=== PATIENT | male | born 1935 | race Caucasian/White ===

== ENCOUNTER → 2023-07-17 13:20 | Outpatient (REF) | payer MEDICARE, BC, SELFPAY | LOC: RAD 13:20 | PROVIDERS: ATTENDING PHYSICIAN Internal Medicine | DX: Z91.81 History of falling (principal); M79.602 Pain in left arm | CPT/HCPCS: 73030; 73080 ==

== ENCOUNTER → 2024-11-20 15:04 | Outpatient (REF) | payer MEDICARE, BC, SELFPAY | LOC: HWRCS 15:04 | PROVIDERS: ATTENDING PHYSICIAN Internal Medicine Cardiovascular Disease; FAMILY PHYSICIAN Internal Medicine | DX: R07.89 Other chest pain (principal) | CPT/HCPCS: 93306 ==

== ENCOUNTER 2024-12-02 12:32 | Inpatient (IN) | payer MEDICARE, BC, SELFPAY ==
--- NOTE | 2024-11-18 09:55 | CM ---
Demographics: confirmed
Living situation: Lives with who has dementia
Support Person Post Operatively: Son Javi, plans to stay with patient and patient's for about a week.
History of
VN: yes, not on service
SNF: no
Outpatient: 'Some place in [place]'
Has patient purchased required equipment: yes
PCP: active
Pharmacy: [facility]
Post Operative Discharge Plan: As per Dr. Nguyen, plan for VN for two weeks. Patient expressed preference for [facility]. CONRADO updated [facility] Admission RN.
CM spoke with son to confirm that he and his will be staying with patient post operatively.
--- NOTE | 2024-11-18 14:32 | VNURNOTE ---
Chart reviewed. Pt will be [facility] then receive [facility] x 2 weeks. Rec'ed message to speak to son. Called son Javi, no answer, left message. Referral for [facility] entered and accepted in [facility].
[2024-11-26 14:05] VITALS: BMI 32.4
[2024-11-26 14:40] LABS: Hematocrit 37.8 % (39.0-52.0); Hemoglobin 12.7 g/dL (13.0-18.0); Mean Corp Hgb Conc. 33.6 g/dL (33.0-37.0); Mean Corpuscular Volume 93.3 fL (80.0-94.0); Platelet Count 222 10^3/uL (130-400); Red Cell Dist. Width 13.2 % (11.5-14.5)
[2024-11-26 14:43] LABS: ALT (SGPT) 21 U/L (0-50); AST (SGOT) 25 U/L (17-59); Albumin 4.4 g/dl (3.5-5.0); Alkaline Phosphatase 71 U/L (38-126); Blood Urea Nitrogen 27 mg/dl (9-20); Calcium 9.0 mg/dl (8.4-10.2); Carbon Dioxide 26 mmol/L (22-30); Chloride 105 mmol/L (98-107); Estimated Creatinine Clearance 49 ml/min; Glucose 162 mg/dl (70-99); Potassium 4.3 mmol/L (3.5-5.1); Sodium 139 mmol/L (135-145); Total Protein 7.2 g/dl (6.3-8.2); eGFR 53.17
[2024-11-27 09:25] LABS: Glycohemoglobin (HgbA1c) 6.7 % (4.0-5.6)
[2024-11-27 16:23] VITALS: BMI 32.4
[2024-12-02] VITALS (13 sets, daily range): BP systolic 145–219; BP diastolic 76–109; BMI 32.4; BMI 30.7
[2024-12-02] MEDS: TYLENOL 650 MG PO ×2 (12:37→20:32)
[2024-12-02] MEDS: CELEBREX 200 MG PO (12:37)
[2024-12-02] MEDS: NORMOSOL-R/PLASMALYTE-A 1000 IV ×2 (12:39→21:39)
[2024-12-02 12:40] LABS: Glucose - Point of Care 118 mg/dl (70-99)
--- NOTE | 2024-12-02 14:21 | W.PN.ORTHO ---
Today's Communication / Plan
-
DISCHARGE DESTINATION: Home with PT, OT and VN. Patient has been
advised as well as son that he is to have 24/ supervision for
minimum of one week postoperatively. He is currently primary
caregiver for his and also has underlying ambulatory
dysfunction with history of fall. In addition, with cognitive issues.
Son was made aware and is instructed to present to hospital by
8 a.m. day of discharge for additional instruction.
Assessment
.
Dressing:
Clean, dry and intact.
Assessment:
ZSO-US-duen-Eliquis at modified dose
Non insulin-dependent diabetes-resume oral hypoglycemics
-add Novolog coverage-Cefadroxil ppx OP Rx
BPH with urinary retention/LUTS
--0.8 mg Flomax immediately following OR
Balance and gait disturbance
-fall precautions
__
Plan
.
Surgery / Date: R TKA Revision Dr Nguyen 12/02/24
DVT Prophylaxis: Other (Eliquis)
Activity:
Out of bed.
PT/OT
Discharge Plan: Home w/ VN
Subjective
.
.:
Patient resting comfortably.
Vital Signs and Labs
.
Vital Signs and Labs:
Lab Results
11/26/24 13:20
11/26/24 13:20
Temp Pulse Resp BP Pulse Ox
98.1 F 50 12 175/95 98
12/02/24 12:26 12/02/24 12:26 12/02/24 12:26 12/02/24 12:26 12/02/24 12:26
--- NOTE | 2024-12-02 14:42 | W.DS.TRANS ---
DC Summary - Leadership Program Internship
-
Discharge Instructions:
Discharge Diagnosis/Procedures R TKA Revision Dr Nguyen 12/02/24
Diet Diabetic, Carb Controlled
Activity With Walker,With assistance
Driving Restrictions No driving
Bathing Restrictions OK to Shower
Other Services VN,PT,OT
Instructions:
Stand-Alone Forms: Total Hip/Knee Replacement D/C
Changes to Home Medications: Yes
Discharge Medications:
DC Medications w/original date entered in [facility]
glimepiride 4 mg tablet 4 - 8 mg PO BID DM II 03/10/09
allopurinol 300 mg tablet 300 mg PO DAILY Gout 10/25/19
cholecalciferol (vitamin D3) 50 mcg (2,000 unit) tablet 2,000 units PO DAILY Supplement 10/25/19
pravastatin 20 mg tablet 20 mg PO QPM High cholesterol 10/25/19
tamsulosin 0.4 mg capsule 0.8 mg PO DAILY 10/05/20
amlodipine 2.5 mg tablet 2.5 mg PO DAILY 11/22/24
atenolol 50 mg tablet 50 mg PO HS 11/22/24
sodium bicarbonate 650 mg tablet 650 mg PO DAILY 11/22/24
cefadroxil 500 mg capsule 500 mg PO BID infection prevention #14 caps 11/26/24
famotidine 20 mg tablet 20 mg PO HS GI prophylaxis #30 tabs 11/26/24
gabapentin 300 mg capsule 300 mg PO HS sleep/pain #10 caps 11/26/24
mupirocin 2 % topical ointment 1 applic topical BID infection prevention #1 tube 11/26/24
ondansetron 4 mg disintegrating tablet 4 mg PO Q6H PRN n/v #20 tabs 11/26/24
oxycodone 5 mg tablet 5 mg PO Q6H PRN 1 tab moderate pain, 2 tabs severe pain #30 tabs 11/26/24
Saccharomyces boulardii 250 mg capsule (Florastor) 250 mg PO BID #1 cap 12/02/24
acetaminophen 325 mg tablet (Tylenol) 650 mg (2 x 325 mg) PO QID #1 tab 12/02/24
apixaban 5 mg tablet (Eliquis) 2.5 mg (1/2 x 5 mg) PO BID Blood clot prevention/afib #0 tabs 12/02/24
docusate sodium 100 mg capsule (Colace) 100 mg PO BID stool softner #1 cap 12/02/24
magnesium hydroxide 400 mg/5 mL oral suspension (Milk of Magnesia) 30 ml PO HS PRN constipation #1 mL 12/02/24
sennosides 8.6 mg tablet (Senokot) 17.2 mg (2 x 8.6 mg) PO BID laxative #2 tabs 12/02/24
Home Medication Changes
cefadroxil 500 mg capsule 500 mg PO BID infection prevention #14 caps 11/26/24
famotidine 20 mg tablet 20 mg PO HS GI prophylaxis #30 tabs 11/26/24
gabapentin 300 mg capsule 300 mg PO HS sleep/pain #10 caps 11/26/24
mupirocin 2 % topical ointment 1 applic topical BID infection prevention #1 tube 11/26/24
ondansetron 4 mg disintegrating tablet 4 mg PO Q6H PRN n/v #20 tabs 11/26/24
oxycodone 5 mg tablet 5 mg PO Q6H PRN 1 tab moderate pain, 2 tabs severe pain #30 tabs 11/26/24
Saccharomyces boulardii 250 mg capsule (Florastor) 250 mg PO BID #1 cap 12/02/24
acetaminophen 325 mg tablet (Tylenol) 650 mg (2 x 325 mg) PO QID #1 tab 12/02/24
apixaban 5 mg tablet (Eliquis) 2.5 mg (1/2 x 5 mg) PO BID Blood clot prevention/afib #0 tabs 12/02/24
docusate sodium 100 mg capsule (Colace) 100 mg PO BID stool softner #1 cap 12/02/24
magnesium hydroxide 400 mg/5 mL oral suspension (Milk of Magnesia) 30 ml PO HS PRN constipation #1 mL 12/02/24
sennosides 8.6 mg tablet (Senokot) 17.2 mg (2 x 8.6 mg) PO BID laxative #2 tabs 12/02/24
Pending Results: No
[2024-12-02 17:37] LABS: Glucose - Point of Care 114 mg/dl (70-99)
[2024-12-02] MEDS: DILAUDID 0.25 MG IV (17:37)
[2024-12-02] MEDS: ROXICODONE 5 MG PO (17:50)
[2024-12-02] MEDS: TRANDATE 5 MG IV (18:43)
[2024-12-02] MEDS: ELIQUIS 2.5 MG PO (20:31)
[2024-12-02] MEDS: SENOKOT 17.2 MG PO (20:31)
[2024-12-02] MEDS: COLACE 100 MG PO (20:31)
[2024-12-02] MEDS: PRAVACHOL 20 MG PO (20:32)
[2024-12-02] MEDS: BACTROBAN 2% OINTMENT 1 APPLIC NASAL (20:33)
[2024-12-02] MEDS: DILAUDID 0.5 MG IV (20:33)
[2024-12-02 21:37] LABS: Glucose - Point of Care 159 mg/dl (70-99)
[2024-12-02] MEDS: PEPCID 20 MG PO (21:39)
[2024-12-02] MEDS: TENORMIN 50 MG PO (21:39)
[2024-12-02] MEDS: ANCEF 5 IV (21:39)
[2024-12-02] MEDS: NEURONTIN 300 MG PO (21:39)
[2024-12-02] MEDS: TYLENOL PO (21:52)
[2024-12-02] MEDS: FLOMAX PO (21:53)
[2024-12-02] MEDS: NOVOLOG FLEXPEN SC (21:53)
[2024-12-02] MEDS: NOVOLOG FLEXPEN-MODERATE RESISTANCE SC (21:54)
[2024-12-02] MEDS: AMARYL PO (21:54)
[2024-12-03] VITALS (11 sets, daily range): BP systolic 75–158; BP diastolic 42–74; PULSE 50–72; O2SAT 99
[2024-12-03] MEDS: TYLENOL 650 MG PO ×6 (00:15→20:22)
--- NOTE | 2024-12-03 01:32 | PTCARENOTE ---
pt rec'vd from PACU at aprox 19:25, aaox3, NEWTOK, R knee drsg with small amount of drainage assessed with PACU nurse. Pt oriented to unit.
--- NOTE | 2024-12-03 02:30 | PTCARENOTE ---
2153 pt refused glimepiride he states he does not take it if his BS is under 200and he can not have a full meal.
[2024-12-03] MEDS: ANCEF 5 IV (06:11)
--- NOTE | 2024-12-03 06:49 | PTCARENOTE ---
pt has had 2 pause episodes less than 2sec and is mateo during night with CPAP .. I read cardiology note has the same pattern at HS .MARKETING ACCOUNT MANAGER made aware.
[2024-12-03 07:59] LABS: Glucose - Point of Care 164 mg/dl (70-99)
[2024-12-03] MEDS: AMARYL 4 MG PO ×2 (08:41→16:28)
[2024-12-03] MEDS: SODIUM BICARBONATE 650 MG PO (08:42)
[2024-12-03] MEDS: FLOMAX 0.8 MG PO (08:42)
[2024-12-03] MEDS: ZYLOPRIM 300 MG PO (08:42)
[2024-12-03] MEDS: SENOKOT 17.2 MG PO ×2 (08:42→20:22)
[2024-12-03] MEDS: NORVASC 2.5 MG PO (08:42)
[2024-12-03] MEDS: COLACE 100 MG PO ×2 (08:42→20:23)
[2024-12-03] MEDS: BACTROBAN 2% OINTMENT 1 APPLIC NASAL ×2 (08:42→20:20)
[2024-12-03] MEDS: ELIQUIS 2.5 MG PO ×2 (08:42→20:21)
[2024-12-03] MEDS: NOVOLOG FLEXPEN-MODERATE RESISTANCE 1 UNITS SC ×3 (08:43→17:28)
[2024-12-03] MEDS: NOVOLOG FLEXPEN 4 UNITS SC ×3 (08:44→17:27)
--- NOTE | 2024-12-03 08:53 | CM ---
Cm met with patient in room. Patient confirmed choice of [facility]. Patient will have son stay with patient and .
PLAN: Home with [facility], and family support.
--- NOTE | 2024-12-03 09:39 | VNURNOTE ---
Home Health Liaison met with patient at bedside to discuss [facility] nurse/therapy, visits, schedule and homebound status. Patient is agreeable and understands that visits at home will be 2-3 x per week to assess and teach medical management.
Patient is aware that [facility] will contact them for start of care in 1-2 days after discharge from .
[facility] referral accepted in [facility].
--- NOTE | 2024-12-03 10:05 | PTCARENOTE ---
This nurse responded to tele alarms alarming for afib and HR in the 40s. Upon review, concern for possible heart block. obtained 12 lead ekg and HAYLEY Chun notified.
--- NOTE | 2024-12-03 10:14 | PTCARENOTE ---
Pt continuing to alarm afib and low rate with pauses while awake. PA notified again
--- NOTE | 2024-12-03 11:20 | PTCARENOTE ---
Pt became hypotensive when working w PT. PA notified. 250ml bolus ordered and administered along with a stat dose of midodrine. Care ongoing.
--- NOTE | 2024-12-03 11:27 | W.PN.ORTHO ---
Today's Communication / Plan
-
DISCHARGE DESTINATION: Home with PT, OT and VN. Patient has been
advised as well as son that he is to have 24/7 supervision for
minimum of one week postoperatively. He is currently primary
caregiver for his and also has underlying ambulatory
dysfunction with history of fall. In addition, with cognitive issues.
Son was made aware and is instructed to present to hospital by
8 a.m. day of discharge for additional instruction.
Assessment
.
Distal Motor Intact: Yes
Dressing:
Clean, dry and intact.
Assessment:
Orthostasis POD#1-+ Midodrine and 250ml IVF bolus
-recheck BP 1 hour after 13:00 repeat dose and if no
orthostasis, may be d/c
[id number] on tele-Eliquis at modified dose
Non insulin-dependent diabetes-resume oral hypoglycemics
-add Novolog coverage-Cefadroxil ppx OP Rx
-sugars stable
BPH
--0.8 mg Flomax immediately following OR
-voiding well
Balance and gait disturbance
-fall precautions
Plan
.
Surgery / Date: R TKA Revision Dr Nguyen 12/02/24
DVT Prophylaxis: Other (Eliquis)
Activity:
Out of bed.
PT/OT
Discharge Plan: Home w/ VN
Subjective
.
.:
Patient resting comfortably.
Vital Signs and Labs
.
Vital Signs and Labs:
Lab Results
11/26/24 13:20
11/26/24 13:20
Temp Pulse Resp BP Pulse Ox
97.5 F 65 20 170/87 92
12/03/24 07:20 12/03/24 08:42 12/03/24 07:20 12/03/24 08:42 12/03/24 07:20
Non-invasive Hgb result: 14
Physical Exam
-
HEENT: No pallor, cyanosis, or jaundice. Throat clear.
NECK: Supple. No JVD.
RESPIRATORY: Lungs clear to auscultation.
CVS: S1, S2 normal. RRR.� No murmur, rub or gallop.
ABDOMEN: Soft, non-tender. No distension. BS+/normal.
EXTREMITIES: strength equal, no calf pain with palpation
CHEMICAL WORKER: AOx3. No focal deficits. staff mechanical engineer grossly intact
[2024-12-03] MEDS: NORMOSOL-R/PLASMALYTE-A 250 IV (11:51)
[2024-12-03 12:41] LABS: Glucose - Point of Care 197 mg/dl (70-99)
[2024-12-03] MEDS: NORMOSOL-R/PLASMALYTE-A 500 IV ×2 (16:37→23:11)
[2024-12-03 17:08] LABS: Glucose - Point of Care 155 mg/dl (70-99)
[2024-12-03] MEDS: PRAVACHOL 20 MG PO (17:29)
[2024-12-03] MEDS: PEPCID 20 MG PO (20:21)
[2024-12-03] MEDS: NEURONTIN 300 MG PO (20:21)
[2024-12-04] MEDS: TYLENOL PO ×2 (00:16→03:46)
[2024-12-04 01:07] LABS: Glucose - Point of Care 165 mg/dl (70-99)
--- NOTE | 2024-12-04 01:25 | PTCARENOTE ---
CERTIFIED WELLNESS PROGRAM MANAGER notified pt HR 26-50's Afib with pauses noted. pt asymptomatic, labs ordered and sent.
[2024-12-04 01:31] LABS: Hematocrit 27.8 % (39.0-52.0); Hemoglobin 9.5 g/dL (13.0-18.0); Mean Corp Hgb Conc. 34.2 g/dL (33.0-37.0); Mean Corpuscular Volume 91.4 fL (80.0-94.0); Platelet Count 175 10^3/uL (130-400); Red Cell Dist. Width 13.5 % (11.5-14.5)
[2024-12-04 02:01] LABS: Blood Urea Nitrogen 40 mg/dl (9-20); Calcium 8.0 mg/dl (8.4-10.2); Carbon Dioxide 26 mmol/L (22-30); Chloride 103 mmol/L (98-107); Estimated Creatinine Clearance 43 ml/min; Glucose 156 mg/dl (70-99); Magnesium 2.1 mg/dl (1.6-2.3); Potassium 3.9 mmol/L (3.5-5.1); Sodium 134 mmol/L (135-145); eGFR 44.78
[2024-12-04 03:00] VITALS: BP 141/65
[2024-12-04] MEDS: CALCIUM GLUCONATE 100 IV (03:37)
[2024-12-04] MEDS: NORMOSOL-R/PLASMALYTE-A 500 IV (05:35)
--- NOTE | 2024-12-04 07:27 | W.PN.UPDATE ---
Update Note
Progress Note Update
RN reporting pt HR 30-40s. Added parameters to HS atenolol dose, but decided to hold tonights dose. Despite the holding of tonights atenolol dose pt HR 30s -40s and sometimes hitting as low as 28 while sleeping. A few pauses were also captured on
tele. Per preop Cardiac clearance holtor monitor in mar 2024 showed freq bradycardia at Hs with pauses up to 5 seconds. During tonights episodes of nocturnal bradycardia pt was ASYMPTOMATIC.
LAbs work check for any possible electrolyte abnormalities. HH did drop from 12.7 to 9.5, slight bump in creat and calcium level slightly low at 8.0 (was previously in the 9s). Also corrected ca+ with albumin was 7.7. Being on low side 1mg calcium
rider iv ordered. Will observe for improvement in HR.
MAy need to consider cardiology consult if HR does not improve.
[2024-12-04] MEDS: TYLENOL 650 MG PO ×2 (08:01→11:36)
[2024-12-04] MEDS: AMARYL 4 MG PO (08:02)
[2024-12-04] MEDS: ZYLOPRIM 300 MG PO (08:02)
[2024-12-04] MEDS: SENOKOT 17.2 MG PO (08:02)
[2024-12-04] MEDS: FLOMAX 0.8 MG PO (08:02)
[2024-12-04] MEDS: ELIQUIS 2.5 MG PO (08:02)
[2024-12-04] MEDS: SODIUM BICARBONATE 650 MG PO (08:03)
[2024-12-04] MEDS: NORVASC PO (08:03)
[2024-12-04] MEDS: COLACE 100 MG PO (08:03)
[2024-12-04 08:04] VITALS: BP 112/73
[2024-12-04 08:37] LABS: Glucose - Point of Care 162 mg/dl (70-99)
--- NOTE | 2024-12-04 09:11 | CM ---
Addendum entered by Brandy Casas RN 12/04/24 13:03:
Patient for discharge to family with [facility].
PLAN: [facility]
Original Note:
Cm reviewed medical records. CM was advised by OT that patient is requesting information on Adult Day Cares for his . CM provided patient with information from [facility] in regards to further care assistance. Patient was
appreciative for the information. CM will remain available as needed.
[2024-12-04 09:38] VITALS: BP 142/66; BP 145/58; BP 145/73; BP 150/60; PULSE 55; PULSE 68; PULSE 75; O2SAT 99
[2024-12-04] MEDS: NOVOLOG FLEXPEN 4 UNITS SC (10:11)
[2024-12-04] MEDS: NOVOLOG FLEXPEN-MODERATE RESISTANCE 1 UNITS SC (10:13)
--- NOTE | 2024-12-04 11:28 | W.PN.ORTHO ---
Today's Communication / Plan
-
d/c
Assessment
.
Distal Motor Intact: Yes
Dressing:
Clean, dry and intact.
Assessment:
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
-cardiology aware-Atenolol advised to be decreased to 25mg hs if HR <50, BP <110
-he remains asymptomatic
-EKG stable
Orthostasis POD#1-+ Midodrine and IVF
-BP stable-asx POD#2
[id number] on tele-Eliquis at modified dose
Non insulin-dependent diabetes-resume oral hypoglycemics
-add Novolog coverage-Cefadroxil ppx OP Rx
-sugars stable
BPH
--0.8 mg Flomax immediately following OR
-voiding well
Balance and gait disturbance
-fall precautions
Plan
.
Surgery / Date: R TKA Revision Dr Nguyen 12/02/24
DVT Prophylaxis: Other (Eliquis)
Activity:
Out of bed.
PT/OT
Discharge Plan: Home w/ VN
Subjective
.
.:
Patient resting comfortably.
Vital Signs and Labs
.
Vital Signs and Labs:
Lab Results
12/04/24 01:20
12/04/24 01:20
Temp Pulse Resp BP Pulse Ox
97.6 F 52 16 112/73 99
12/04/24 08:04 12/04/24 08:04 12/04/24 08:04 12/04/24 08:04 12/04/24 09:37
Non-invasive Hgb result: 14
Physical Exam
-
HEENT: No pallor, cyanosis, or jaundice. Throat clear.
NECK: Supple. No JVD.
RESPIRATORY: Lungs clear to auscultation.
CVS: S1, S2 normal. RRR.� No murmur, rub or gallop.
ABDOMEN: Soft, non-tender. No distension. BS+/normal.
EXTREMITIES: strength equal, no calf pain with palpation
FOOT AND ANKLE SURGEON: AOx3. No focal deficits. end worker grossly intact
[2024-12-04 11:31] VITALS: BP 143/60
== END 2024-12-04 12:05 | disposition home health service (06) | DRG 465 ==
LOC: 2 SOUTH 12:32
PROVIDERS: Nurse Practitioner Family; ADMITTING PHYSICIAN Specialist; FAMILY PHYSICIAN Internal Medicine; REFERRING PHYSICIAN Internal Medicine Cardiovascular Disease
PROC: 0SRC0M9 Replacement of Right Knee Joint with Lateral Unicondylar Synthetic Substitute, Cemented, Open Approach (ICD-10-PCS; 2024-12-02)
PROC: 0SPC0MZ Removal of Lateral Unicondylar Synthetic Substitute from Right Knee Joint, Open Approach (ICD-10-PCS; 2024-12-02)
DX: T84.032A Mechanical loosening of internal right knee prosthetic joint, initial encounter (principal); Y79.2 Prosthetic and other implants, materials and accessory orthopedic devices associated with adverse incidents; G47.33 Obstructive sleep apnea (adult) (pediatric); N18.30 Chronic kidney disease, stage 3 unspecified; I12.9 Hypertensive chronic kidney disease with stage 1 through stage 4 chronic kidney disease, or unspecified chronic kidney disease; K21.9 Gastro-esophageal reflux disease without esophagitis; N40.1 Benign prostatic hyperplasia with lower urinary tract symptoms; I48.0 Paroxysmal atrial fibrillation; Z79.01 Long term (current) use of anticoagulants; E78.5 Hyperlipidemia, unspecified; E66.01 Morbid (severe) obesity due to excess calories; E11.22 Type 2 diabetes mellitus with diabetic chronic kidney disease; Z68.32 Body mass index [BMI] 32.0-32.9, adult; Z96.653 Presence of artificial knee joint, bilateral; Z96.641 Presence of right artificial hip joint
CPT/HCPCS: 36415; 73560; 80048; 80053; 82962; 83036; 83735; 85027; 86850; 86900; 86901; 87070; 93005; 94660; 97110; 97116; 97162; 97166; 97530; 97535; C1713; C1762; C1776

== ENCOUNTER → 2024-12-09 23:35 | Emergency (ER) | payer MEDICARE, BC, SELFPAY ==
[2024-12-09 23:37] VITALS: BP 118/84
[2024-12-09 23:57] LABS: Hematocrit 27.1 % (39.0-52.0); Hemoglobin 9.2 g/dL (13.0-18.0); Mean Corp Hgb Conc. 33.9 g/dL (33.0-37.0); Mean Corpuscular Volume 92.5 fL (80.0-94.0); Nucleated Red Blood Cells % 0 % (-); Platelet Count 277 10^3/uL (130-400); Red Cell Dist. Width 13.6 % (11.5-14.5)
[2024-12-10 00:35] LABS: ALT (SGPT) 33 U/L (0-50); AST (SGOT) 45 U/L (17-59); Albumin 4.0 g/dl (3.5-5.0); Alkaline Phosphatase 89 U/L (38-126); Blood Urea Nitrogen 27 mg/dl (9-20); Calcium 8.4 mg/dl (8.4-10.2); Carbon Dioxide 26 mmol/L (22-30); Chloride 104 mmol/L (98-107); Glucose 182 mg/dl (70-99); Potassium 4.8 mmol/L (3.5-5.1); Sodium 135 mmol/L (135-145); Total Protein 6.8 g/dl (6.3-8.2); eGFR 58.53
[2024-12-10 03:36] VITALS: BMI 32.0
[2024-12-10 04:00] VITALS: BP 165/72
--- NOTE | 2024-12-10 04:57 | ED.GENMED ---
History of Present Illness
General
Chief Complaint: Swelling
Source: patient
Exam Limitations: none
Time Seen by Provider: 12/10/24 04:55
Nursing documentation reviewed up to this point in time: agreed with
History of Present Illness
History of Present Illness:
89-year-old male with a past medical history of a fib on Eliquis , COPD , sleep apnea, hypertension, hyperlipidemia , CKD stage three, presents to the ER today with concerns of increasing pain and swelling and his right knee. He is postop day eight
for revision of pain, shortness of breath, nausea or vomiting. right knee replacement. t this time, patient states that he does not feel any significant pain. Earlier, patient was having a lot of pain at home and felt like his pain was not
adequately relieved with his pain medication given by orthopedic team. He is able to ambulate with a walker. He did see PT earlier today. He admits to being less compliant with elevation, ice, etc. and sees that he's often frustrated with PT . He
denies any fevers, he denies any permanent drainage from his surgical wound, he denies any redness. He reports that he is still finishing up course of antibiotics post surgery. He denies any calf pain, chest pain, shortness of breath, nausea,
vomiting.
Past History
Past History
ED Past Medical History: GERD, HTN, Hypercholesterolemia, NIDDM and Other (BPH, osteoarthritis, sleep apnea)
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
Social History
Tobacco: Non-smoker
Personal:
Living: with family
Family History
Family History: Hypertension; Negative Early CAD
Review of Systems
Review of Systems
All Other Systems: ROS reviewed and negative except as documented in HPI and ROS
Phy Exam
Physical Exam
Physical Exam:
General: Patient is well appearing and in no acute distress; non-toxic
Skin: Warm and dry, no rashes or lesions
Head: Normocephalic, atraumatic
Eyes: Sclera non-icteric. EOMs intact.
Cardiac: Regular rate
Peripheral Vascular: Right sided lower extremity swelling noted, surgical site intact with sima, no purulent drainage, no surrounding erythema, no warmth, ecchymosis noted to the medial thigh
Pulm: Normal respiratory effort
Musculoskeletal: No bony tenderness palpation of the right lower extremity.
Neuro: CN II-XII intact, no focal neurologic deficits.
Psychiatric: Appropriate mood and affect.
Scores
Heart Failure Risk
Heart Failure Risk Score: Not Applicable
Course
Orders/Labs/Results
Orders:
Orders
12/09/24 23:48
CMP [Comprehensive Metabolic Panel] Urgent
Complete Blood Count/With Diff Urgent
12/10/24 05:18
US Periph Venous LOWER Ext RT Urgent
Comment:
Reason For Exam: right lower ext pain, swelling
Abnormal Lab Results
12/09/24
23:48
WBC 11.5 H 10^3/uL
(4.8-10.8)
RBC 2.93 L 10^6/uL
(4.70-6.10)
Hgb 9.2 L g/dL
(13.0-18.0)
Hct 27.1 L %
(39.0-52.0)
MCH 31.4 H pg
(27.0-31.0)
Abs Immat Gran (auto) 0.1 H 10^3/uL
(0-0.05)
Absolute Neuts (auto) 9.3 H 10^3/uL
(1.4-6.5)
Absolute Lymphs (auto) 0.8 L 10^3/uL
(1.2-3.4)
Absolute Monos (auto) 1.1 H 10^3/uL
(0.1-0.6)
Neutrophils % 80.9 H %
(42.2-75.2)
Lymphocytes % 6.9 L %
(20.5-51.1)
Monocytes % 9.9 H %
(1.7-9.3)
BUN 27 H mg/dl
(9-20)
Glucose 182 H mg/dl
(70-99)
Total Bilirubin 2.5 H mg/dl
(0.2-1.3)
12/09/24 23:48
12/09/24 23:48
Vital Signs
Initial and Last Documented VS:
Initial Vital Signs
Temp Pulse Resp BP Pulse Ox
98.7 F 72 22 118/84 98
12/09/24 23:37 12/09/24 23:37 12/09/24 23:37 12/09/24 23:37 12/09/24 23:37
Last Documented Vital Signs
Temp Pulse Resp BP Pulse Ox
98.7 F 58 19 170/66 98
12/09/24 23:37 12/10/24 06:30 12/10/24 06:30 12/10/24 06:00 12/10/24 06:30
MDM/Problems Addressed
Differential Diagnosis Includes:
Differentials include DVT, postoperative changes, surgical site infection, cellulitis, hematoma,
MDM/Problems Addressed:
89-year-old male with past medical history of A-fib on Eliquis, COPD, sleep apnea, hypertension, chronic kidney disease presents ER today with concerns of increasing pain and swelling in his right knee following surgery by Dr. Nguyen 8 days ago.
He had a revision of his knee replacement done. Currently, he states that his pain is minimal and he feels well. He states that the swelling has gone down since he has elevated his leg in the ER. On my exam, there is a lateral surgical incision
with no purulent drainage, no surrounding erythema. No tenderness to palpation. Patient does take Eliquis but since he has had increasing swelling at home, did send for DVT study which was negative. Again no signs of postoperative infection.
Patient is finishing course of cephalosporin antibiotic. Suspect typical postop changes. Patient will continue with PT. Discussed calling Dr. Leon's office for follow-up appointment and getting blood work repeated. Patient does not need a
refill of his medications. Reviewed case with ED attending. Patient stable for discharge.
Chronic conditions affecting care:
Sleep apnea, A-fib, hypertension, hyperlipidemia
*Pulse Oximetry
SaO2: 96
Oxygen Mode of Delivery: Room air
Patient hypoxic: no
*Critical Care Note
Total Time (30-74mins, 75-104mins- exclusive of procedures): Not Applicable
ED Attending Note
-
Portions of this chart may have been created with voice recognition software.� Occasional wrong word or��sound alike� substitutions may have occurred due to the inherent limitations of voice recognition software.
Discharge Plan
Departure
Patient Disposition: Home (Routine Discharge)
Date of Disposition: 12/10/24
Time of Disposition: 06:52
Patient with high blood pressure during this ER visit?: Yes
Condition: Good
Discharge Problem:
Status post knee replacement, Pain in right knee
Instructions: Knee replacement (DC), Knee pain - ED (DC), BLOOD PRESSURE
Prescriptions:
No Action
glimepiride 4 MG tablet
4 - 8 mg PO BID
Rx Instructions:
PER PT- DOSING ACCORDING TO THE BLOOD GLUCOSE LEVEL;
allopurinol 300 MG tablet
300 mg PO DAILY
pravastatin 20 MG tablet
20 mg PO QPM
cholecalciferol (vitamin D3) 2,000 UNITS tablet
2,000 units PO DAILY
tamsulosin 0.4 MG capsule
0.8 mg PO DAILY
Patient Comments:
Alternating days 1/2=.4 mg Day 3=.8mg
sodium bicarbonate 650 mg Tablet
650 mg PO DAILY
amlodipine 2.5 mg Tablet
2.5 mg PO DAILY
mupirocin 2 % ointment
1 applic topical BID Qty: 1 0RF
Patient Comments:
started treatment monday10/29/24 and completed BID, last took at home 12/02/24 in am
cefadroxil 500 mg capsule
500 mg PO BID Qty: 14 0RF
Rx Instructions:
*Take w/ food
*Take w/ probiotic
*POST-OP USE
famotidine 20 mg tablet
20 mg PO HS Qty: 30 0RF
Rx Instructions:
post-op
gabapentin 300 mg capsule
300 mg PO HS Qty: 10 0RF
Rx Instructions:
*POST-OP USE ONLY
ondansetron 4 mg tablet,disintegrating
4 mg PO Q6H PRN (Reason: n/v) Qty: 20 0RF
Rx Instructions:
take 1/2h b/f pain med if recurrent nausea
allow to dissolve in mouth w/o water
oxycodone 5 mg tablet
5 mg PO Q6H PRN (Reason: 1 tab moderate pain, 2 tabs severe pain) Qty: 30 0RF
Rx Instructions:
Ongoing therapy
POST-OP USE ONLY
sennosides [Senokot] 8.6 mg tablet
17.2 mg PO BID Qty: 2 0RF
acetaminophen [Tylenol] 325 mg tablet
650 mg PO QID Qty: 1 0RF
Rx Instructions:
SCHEDULED DOSING
magnesium hydroxide [Milk of Magnesia] 400 mg/5 mL suspension
30 ml PO HS PRN (Reason: constipation) Qty: 1 0RF
Rx Instructions:
CONTINUE colace W/senokot-if no bowel movement 1 day POST-OP -add milk of mag
docusate sodium [Colace] 100 mg capsule
100 mg PO BID Qty: 1 0RF
Saccharomyces boulardii [Florastor] 250 mg capsule
250 mg PO BID Qty: 1 0RF
Eliquis 5 MG tablet
2.5 mg PO BID Qty: 0 0RF
Rx Instructions:
1/2 tab (2.5mg) twice a day --RESUME 5MG TWICE A DAY DOSING ON 12/05/24
atenolol 50 mg tablet
50 mg PO HS Qty: 1 0RF
Rx Instructions:
TAKE 25MG (1/2TAB) IF hr <55 BP <110
Referrals:
Yfn Nguyen MD [Active, Orthopedics] - Call in 1-3 days for appt
Arcadio Langford MD [Family Provider, Internal Medicine]
Activity Restrictions/Additional Instructions:
Your total bilirubin today was elevated. Please have CMP rechecked with primary care provider.
Your ultrasound today was negative for DVT.
Please continue to utilize physical therapy from home. You can continue to take your prescribed pain medications as needed. You can use ice and keep the leg elevated at home
Please call Dr. Nguyen today and please state that you are evaluated in the emergency department. Please see if you can move up your postop appointment.
PLEASE RETURN TO THE ER RIGHT AWAY SHOULD YOU DEVELOP FEVER, PURULENT DRAINAGE FROM THE SURGICAL SITE, INCREASING REDNESS OR PAIN SURROUNDING THE WOUND, INABILITY TO AMBULATE WITH YOUR WALKER, LOSS OF SENSATION, PALLOR, OR ANY OTHER SIGNS OR
SYMPTOMS WORRISOME TO YOU.
Interventions
Interventions:
*Risk Screen - Suicide Last Done: 12/09/24 23:37
*General Assessment Last Done: 12/10/24 03:36
*Neglect/Abuse Screening Last Done: 12/09/24 23:37
*ED- Fall Risk Assessment Last Done: 12/10/24 03:36
*ED COVID-19 Vaccine History Last Done: 12/10/24 03:36
ED- Cardiac Assessment Last Done: 12/10/24 03:36
ED- Pulmonary Assessment Last Done: 12/10/24 03:36
ED-Skin Assessment Last Done: 12/10/24 03:36
Discharge Date and Time
Print Language: FIJIAN
[2024-12-10 05:00] VITALS: BP 168/78
[2024-12-10 06:00] VITALS: BP 170/66
== END | disposition home or self-care (01) ==
LOC: EMR 23:35
PROVIDERS: Emergency Medicine; EMERGENCY PHYSICIAN Emergency Medicine; FAMILY PHYSICIAN Internal Medicine
DX: M25.561 Pain in right knee (principal); Z96.651 Presence of right artificial knee joint; R22.41 Localized swelling, mass and lump, right lower limb; I12.9 Hypertensive chronic kidney disease with stage 1 through stage 4 chronic kidney disease, or unspecified chronic kidney disease; E11.22 Type 2 diabetes mellitus with diabetic chronic kidney disease; N18.30 Chronic kidney disease, stage 3 unspecified; E78.00 Pure hypercholesterolemia, unspecified; G47.30 Sleep apnea, unspecified; I48.91 Unspecified atrial fibrillation; J44.9 Chronic obstructive pulmonary disease, unspecified; M19.90 Unspecified osteoarthritis, unspecified site; N40.0 Benign prostatic hyperplasia without lower urinary tract symptoms; Z79.01 Long term (current) use of anticoagulants; Z82.49 Family history of ischemic heart disease and other diseases of the circulatory system
CPT/HCPCS: 99284; 80053; 85025; 93971